=== PATIENT | female | born 1990 | race Hispanic/Latino ===

== ENCOUNTER 2016-10-10 16:36 | Emergency (ER) | payer OTHER ==
[2016-10-10] MEDS ORDERED: diphenhydrAMINE HCl 25 MG CAP ONE (16:48)
--- NOTE | 2016-10-10 17:58 | ERRECORD ---
[facility] EMERGENCY RECORD HPI BEE STING (16:48 [facility]) CHIEF COMPLAINT: Patient presents for evaluation of bee sting. HISTORIAN: History provided by patient, 26F at 28 weeks by dates presents following a bee sting to her left arm. She has had a bad reaction to a bee sting once before, but prior to that she did not have any problems. Denies shortness of breath or throat swelling, is primarily concerned about the pruritis and rash. LOCATION: Symptoms are generalized. TIME COURSE: Sudden onset of symptoms, just prior to arrival. ASSOCIATED WITH: Associated with facial symptoms, Associated with itching, Associated with localized swelling, No associated shortness of breath, No associated throat tightness. RELIEVED BY: Patient's condition relieved by nothing because patient has not tried anything for relief. ROS (16:53 [facility]) CONSTITUTIONAL: Negative constitutional review of systems, Historian denies chills, denies fever. EYES: Negative eye review of systems, Historian denies eye pain, denies vision changes. ENT: Negative ears, nose, throat review of systems, Historian denies rhinorrhea, denies sore throat, denies voice changes. CARDIOVASCULAR: Negative cardiovascular review of systems, Historian denies chest pain, denies palpitations. RESPIRATORY: Negative respiratory review of systems, Historian denies cough, denies shortness of breath. GI: Negative gastrointestinal review of systems, Historian denies abdominal pain, denies constipation, denies diarrhea, denies nausea, denies vomiting. GENITOURINARY FEMALE: Negative genitourinary review of systems, Historian denies dysuria, denies frequency. MUSCULOSKELETAL: Negative musculoskeletal review of systems, Historian denies back pain, denies fall, denies injury. SKIN: Historian reports rash, generalized rash and itchiness. NEUROLOGIC: Negative neurologic review of systems, Historian denies headache, denies mental status changes, denies paralysis, denies paresthesias, denies sensory changes. HEMO/LYMPHATIC: Normal hematologic/lymphatic system review, Historian denies abnormal blood clotting. ALLERGIC/IMMUNOLOGIC: Normal allergy/immunologic system review, Historian denies frequent infections. PAST MEDICAL HISTORY (16:56 WJAN) MEDICAL HISTORY: Flu vaccine up to date, Tetanus immunization up to date, Pneumococcal vaccine not up to date, No past medical history, REVIEWED 10/10/2016. FEMALE SURGICAL HISTORY: UNKNOWN HEART SURGERY CHILD. REVIEWED 12/09/15, Surgical history of cholecystectomy. REVIEWED &a-1R&a+25V*p+0X*g8238C*c202B*c15G*c2P*p-0X&a-25V&a+1R Name: Elisa Hector : 1990 F26 MedRec: [id number] AcctNum: [id number] Prepared: Douglas Oct 10, 2016 18:00 by Interface Page 1 of 4 pMD [facility] EMERGENCY RECORD 10/10/2016. PSYCHIATRIC HISTORY: No previous psychiatric history. REVIEWED 10/10/2016. SOCIAL HISTORY: Patient denies alcohol use, Patient denies drug use, Patient has no smoking history. REVIEWED 10/10/2016. FAMILY HISTORY: Maternal history of diabetes. KNOWN ALLERGIES No Known Drug Allergies CURRENT MEDICATIONS (16:48 WJAN) None VITAL SIGNS VITAL SIGNS: BP: 137/79, Pulse: 96, Resp: 98, Temp: 98 (Oral), Pain: 0, O2 sat: 97 on Room Air, Time: 10/10/2016 16:42. (16:42 WJAN) BP: 129/72, Pulse: 85, Resp: 20, Pain: 0, O2 sat: 97 on Room Air, Time: 10/10/2016 17:41. (17:41 AHOO) Temp: 98.0 (Oral), Time: 10/10/2016 17:47. (17:47 AHOO) PHYSICAL EXAM (16:53 [facility]) CONSTITUTIONAL: Vital signs reviewed, Patient afebrile, Pulse normal, Blood pressure normal, Respiratory rate normal, Patient appears non toxic, Patient appears pain free, Patient alert and oriented to person, place and time. HEAD: Head exam normal, Head exam included findings of head atraumatic, normocephalic. EYES: Eye exam normal, Eye exam included findings of eyelids normal to inspection, Pupils equally round and reactive to light, Extraocular muscles intact, no nystagmus. ENT: ENT exam normal, Ear exam normal, external ear normal, tympanic membranes normal, no bleeding, Pharynx exam normal, Uvula exam normal, Tonsil exam normal, Mouth exam normal, mucous membranes moist, teeth normal. NECK: Neck exam normal, Neck exam included findings of normal range of motion, Trachea midline, no meningeal signs, no cervical adenopathy, no tenderness. RESPIRATORY CHEST: Respiratory and chest exam normal, Respiratory exam included findings of no respiratory distress, Breath sounds clear. CARDIOVASCULAR: Cardiovascular assessment normal, Cardiovascular exam included findings of heart rate regular rate and rhythm, Heart sounds normal. ABDOMEN FEMALE: Abdominal exam included findings of abdomen nontender, Bowel sounds normal, no distension, no mass, no pulsatile masses, no peritoneal signs, no rigidity, no guarding, no rebound, Rovsing's sign absent. BACK: Back exam normal, Back exam included findings of normal inspection, range of motion normal, no tenderness. UPPER EXTREMITY: Upper extremity exam normal, Upper extremity &a-1R&a+25V*p+0X*n1225V*c202B*c15G*c2P*p-0X&a-25V&a+1R Name: Elisa Hector : 1990 F26 MedRec: [id number] AcctNum: [id number] Prepared: Douglas Oct 10, 2016 18:00 by Interface Page 2 of 4 pMD [facility] EMERGENCY RECORD exam included findings of inspection normal, Range of motion normal, Motor strength normal, Sensation intact, Radial pulse normal. LOWER EXTREMITY: Lower extremity exam normal, Lower extremity exam included findings of inspection normal, Range of motion normal, Motor strength normal, Sensation intact, Posterior tibial pulse normal, Pedal pulse normal. NEURO: Neuro exam normal, Neuro exam findings include patient oriented to person, place and time, Speech normal, Gait normal, Cranial nerves intact, no focal motor deficits, no focal sensory deficits. SKIN: Skin exam included findings of skin warm, dry, and normal in color, Rash present, hives, generalized rash. PSYCHIATRIC: Psychiatric exam normal, Normal affect. MEDICATION ADMINISTRATION SUMMARY Drug Name: Benadryl oral, Dose Ordered: 50 mg, Route: Oral, Status: Given, Time: 16:50 10/10/2016, Detailed record available in Medication Service section. DOCTOR NOTES (17:47 [facility]) RE-EVALUATION: Routine re-evaluation, after administration of, benadryl. TEXT: Patient had significant symptomatic improvement after antihistamine dosing. No concern for distress. Based on her history, there is a concern that the next sting will cause an anaphylactic reaction, and I have provided her with an EpiPen and instructed follow up with PMD. S. PATIENT STATUS: Patient has improved since arrival to emergency department. PATIENT PLAN: The patient will be discharged, The patient will follow up with primary care physician. PROBLEM LIST No recorded problems DIAGNOSIS (17:45 [facility]) FINAL: PRIMARY: bee sting. PRESCRIPTION (17:44 [facility]) EpiPen: AUTO-INJECTOR (EA) : 0.3 mg/0.3 mL (1:1,000) : INJECTION : Quantity: 1 Unit: galilea Route: INJECTION Schedule: As Needed Dispense: 1 May substitute. Refills: No Refills . NOTES: No refills. DISPOSITION PATIENT: Disposition Type: Discharge, Disposition: *Discharge Home. (17:45 [facility]) &a-1R&a+25V*p+0X*z1152U*c202B*c15G*c2P*p-0X&a-25V&a+1R Name: Elisa Hector : 1990 MedRec: [id number] AcctNum: [id number] Prepared: SunOct 10, 2016 18:00 by Interface Page 3 of 4 pMD [facility] EMERGENCY RECORD Condition: Good, Patient left the department. (17:55 WOCT) Pickett: [facility]=PAUL Guillaume, January [facility]=MD Karin, Christian NEWMAN=STEPHIE Florian, Nasreen &a-1R&a+25V*p+0X*q2709M*c202B*c15G*c2P*p-0X&a-25V&a+1R Name: Elisa Hector : 1990 F26 MedRec: [id number] AcctNum: [id number] Prepared: SunOct 10, 2016 18:00 by Interface Page 4 of 4 pMD MTDD
--- NOTE | 2016-10-10 18:02 | PICIS ---
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 Rash and hives, 2nd reaction to bee sting. 28 weeks . (SunOct 10, 2016 16:44 WJAN) PATIENT: NAME: Elisa Hector, AGE: 26, GENDER: female, : Sun1990, TIME OF GREET: SunOct 10, 2016 16:37, PREFERRED LANGUAGE: Greenlandic, ETHNICITY: or , ECODE BILLING MAP: [facility], SSN: [id number], Zip Code: [address], KG WEIGHT: 87.54, PHONE: , , , PERSON ID: [id number], PAYMENT: X Medicaid, PCP: MD Groves Kia. (SunOct 10, 2016 16:44 WJAN) COMPLAINT: Allergic Reaction. (SunOct 10, 2016 16:44 WJAN) ADMISSION: URGENCY: 3 Urgent, ADMISSION SOURCE: Home, TRANSPORT: Walk-in, BED: TRIAGE. (SunOct 10, 2016 16:44 WJAN) IMMUNIZATIONS: Flu vaccine up to date, Tetanus immunization up to date, Pneumococcal vaccine not up to date. (16:56 WJAN) SIRS SCORING: Heart Rate 55-109 (0), Temp range 96.8-101.1 (0), respiratory rate 12-24 (0), Mental Status altered: no (0), Infection or Suspected Infection: No. (16:56 WJAN) TRIAGE SCREENING: Patient denies suicidal ideation, Patient denies presence of domestic violence. (16:56 WJAN) LMP: Last menstrual period: 04/09/2016, Estimated conception 04/23/2016, Estimated due date 01/14/2017, Estimated age 26 weeks, 2 days. (16:56 WJAN) PROVIDERS: TRIAGE NURSE: Nasreen Florian RN. (SunOct 10, 2016 16:44 WJAN) VITAL SIGNS: BP 137/79, Pulse 96, Resp 98, Temp 98, (Oral), Pain 0, O2 Sat 97, on Room Air, Time 10/10/2016 16:42. (16:42 WJAN) KNOWN ALLERGIES No Known Drug Allergies CURRENT MEDICATIONS (16:48 WJAN) None VITAL SIGNS VITAL SIGNS: BP: 137/79, Pulse: 96, Resp: 98, Temp: 98 (Oral), Pain: 0, O2 sat: 97 on Room Air, Time: 10/10/2016 16:42. (16:42 WJAN) BP: 129/72, Pulse: 85, Resp: 20, Pain: 0, O2 sat: 97 on Room Air, Time: 10/10/2016 17:41. (17:41 AHOO) Temp: 98.0 (Oral), Time: 10/10/2016 17:47. (17:47 AHOO) NURSING ASSESSMENT: ALLERGIC REACTION (16:45 WJAN) CONSTITUTIONAL: Patient arrives ambulatory, Gait steady, History obtained from patient, Patient appears comfortable, Patient cooperative, Patient alert, Oriented to person, place and time, Skin warm, Skin dry, Skin normal in color, Mucous membranes pink, Mucous membranes moist, Patient is well-groomed, Patient complains of Allergic Reaction, Pt reports being stung by Bee 40 minutes RUG CUTTER, 2nd time to react to bee sting like this with hives, rash, and &a-1R&a+25V*p+0X*f1686K*c202B*c15G*c2P*p-0X&a-25V&a+1R Name: Elisa Hector : 1990 F26 MedRec: [id number] AcctNum: [id number] Prepared: Douglas Oct 10, 2016 18:06 by Interface Page 1 of 6 pMD [facility] EMERGENCY RECORD itching. ALLERGIC REACTION: Allergic reaction to known allergen, bee sting, Past episodes of allergic reactions, to insect, Allergic reaction symptoms include no difficulty breathing, Allergic reaction symptoms include no difficulty swallowing, Allergic reaction symptoms include hives, Allergic reaction symptoms include localized swelling, Allergic reaction symptoms include rash, Allergic reaction symptoms include no swelling to extremities, Allergic reaction symptoms include no swelling to eyes, Allergic reaction symptoms include swelling to face, Allergic reaction symptoms include no swelling to mouth, Pain assessment findings include: Patient denies complaints of pain, Allergic reaction symptoms include no wheezing, Notes: No medications taken RUG CUTTER. RESPIRATORY: Breath sounds clear, Respiratory assessment findings include respiratory effort easy, Respirations regular, Conversing normally, Neck and chest exam findings include trachea midline, Chest expansion equal, Chest movement symmetrical. SKIN: Skin assessment findings include skin warm, Skin dry, Skin normal in color, Inspection findings include rash, red, hives, itchy, Inspection findings include redness, to Face, neck, chest, arms. SAFETY: Side rails up, Cart/Stretcher in lowest position, Call light within reach, Hospital ID band on. NURSING PROCEDURE: DISCHARGE NOTE (17:51 WJAN) DISCHARGE: Patient discharged to home, ambulating without assistance, driving self, unaccompanied, Summary of Care printed/ provided, Patient requested and was provided an electronic copy of Discharge Instructions, Transition record given to patient, Discharge instructions given to patient, Simple or moderate discharge teaching performed, by STEPHIE Downey, Prescriptions given and instructions on side effects given, Medication reconciliation form given, Above person(s) verbalized understanding of discharge instructions and follow-up care, Notes: Patient instructed to follow up with PCP. Patient instructed to follow medication instructions. Patient instructed to follow discharge teaching. BELONGINGS: Belongings remain with patient, Valuables remain with patient. SAFETY: Side rails up, Cart/Stretcher in lowest position, Call light within reach, Hospital ID band on. NURSING PROCEDURE: NURSE NOTES NURSES NOTES: Patient in no apparent distress, Assistance offered to patient, Notes: Pt asked if any breathing issues or throat sensation/tightness, pt denies any breathing difficulty or changes in throat. (16:55 WJAN) Patient in no apparent distress, Notes: Pt resting in bed and able to move herself. Pt denies and breathing issues or changes in throat. Pt reports a decrease in itching and feeling better. (17:20 &a-1R&a+25V*p+0X*b1146K*c202B*c15G*c2P*p-0X&a-25V&a+1R Name: Elisa Hector : 1990 F26 MedRec: [id number] AcctNum: [id number] Prepared: Douglas Oct 10, 2016 18:06 by Interface Page 2 of 6 pMD [facility] EMERGENCY RECORD WJAN) MEDICATION ADMINISTRATION SUMMARY Drug Name: Benadryl oral, Dose Ordered: 50 mg, Route: Oral, Status: Given, Time: 16:50 10/10/2016, Detailed record available in Medication Service section. MEDICATION SERVICE Benadryl oral: Order: Benadryl oral (diphenhydramine HCl) - Dose: 50 mg : Oral Ordered by: Christian Frazier MD Entered by: MD Douglas Narvaez Oct 10, 2016 16:47 , Acknowledged by: Nasreen Florian RN ana Oct 10, 2016 16:48 Documented as given by: Nasreen Florian RN ana Oct 10, 2016 16:50 Patient, Medication, Dose, Route and Time verified prior to administration. Amount given: 50mg, Site: Medication administered P.O., Correct patient, time, route, dose and medication confirmed prior to administration, Patient advised of actions and side-effects prior to administration, Allergies confirmed and medications reviewed prior to administration, Patient in position of comfort, Side rails up, Cart in lowest position. : Follow Up : No signs or symptoms of allergic reaction noted, Decreased symptoms, Decreased rash, Advised not to ambulate without assistance, Patient in position of comfort, Side rails up, Cart in lowest position. (17:20 WFARSHAD) HPI BEE STING (16:48 [facility]) CHIEF COMPLAINT: Patient presents for evaluation of bee sting. HISTORIAN: History provided by patient, 26F at 28 weeks by dates presents following a bee sting to her left arm. She has had a bad reaction to a bee sting once before, but prior to that she did not have any problems. Denies shortness of breath or throat swelling, is primarily concerned about the pruritis and rash. LOCATION: Symptoms are generalized. TIME COURSE: Sudden onset of symptoms, just prior to arrival. ASSOCIATED WITH: Associated with facial symptoms, Associated with itching, Associated with localized swelling, No associated shortness of breath, No associated throat tightness. RELIEVED BY: Patient's condition relieved by nothing because patient has not tried anything for relief. ROS (16:53 [facility]) CONSTITUTIONAL: Negative constitutional review of systems, Historian denies chills, denies fever. EYES: Negative eye review of systems, Historian denies eye pain, denies vision changes. ENT: Negative ears, nose, throat review of systems, Historian &a-1R&a+25V*p+0X*b1942U*c202B*c15G*c2P*p-0X&a-25V&a+1R Name: Elisa Hector : 1990 F26 MedRec: [id number] AcctNum: [id number] Prepared: Douglas Oct 10, 2016 18:06 by Interface Page 3 of 6 pMD [facility] EMERGENCY RECORD denies rhinorrhea, denies sore throat, denies voice changes. CARDIOVASCULAR: Negative cardiovascular review of systems, Historian denies chest pain, denies palpitations. RESPIRATORY: Negative respiratory review of systems, Historian denies cough, denies shortness of breath. GI: Negative gastrointestinal review of systems, Historian denies abdominal pain, denies constipation, denies diarrhea, denies nausea, denies vomiting. GENITOURINARY FEMALE: Negative genitourinary review of systems, Historian denies dysuria, denies frequency. MUSCULOSKELETAL: Negative musculoskeletal review of systems, Historian denies back pain, denies fall, denies injury. SKIN: Historian reports rash, generalized rash and itchiness. NEUROLOGIC: Negative neurologic review of systems, Historian denies headache, denies mental status changes, denies paralysis, denies paresthesias, denies sensory changes. HEMO/LYMPHATIC: Normal hematologic/lymphatic system review, Historian denies abnormal blood clotting. ALLERGIC/IMMUNOLOGIC: Normal allergy/immunologic system review, Historian denies frequent infections. PAST MEDICAL HISTORY (16:56 WJAN) MEDICAL HISTORY: Flu vaccine up to date, Tetanus immunization up to date, Pneumococcal vaccine not up to date, No past medical history, REVIEWED 10/10/2016. FEMALE SURGICAL HISTORY: UNKNOWN HEART SURGERY CHILD. REVIEWED 12/09/15, Surgical history of cholecystectomy. REVIEWED 10/10/2016. PSYCHIATRIC HISTORY: No previous psychiatric history. REVIEWED 10/10/2016. SOCIAL HISTORY: Patient denies alcohol use, Patient denies drug use, Patient has no smoking history. REVIEWED 10/10/2016. FAMILY HISTORY: Maternal history of diabetes. PHYSICAL EXAM (16:53 [facility]) CONSTITUTIONAL: Vital signs reviewed, Patient afebrile, Pulse normal, Blood pressure normal, Respiratory rate normal, Patient appears non toxic, Patient appears pain free, Patient alert and oriented to person, place and time. HEAD: Head exam normal, Head exam included findings of head atraumatic, normocephalic. EYES: Eye exam normal, Eye exam included findings of eyelids normal to inspection, Pupils equally round and reactive to light, Extraocular muscles intact, no nystagmus. ENT: ENT exam normal, Ear exam normal, external ear normal, tympanic membranes normal, no bleeding, Pharynx exam normal, Uvula exam normal, Tonsil exam normal, Mouth exam normal, mucous membranes moist, teeth normal. NECK: Neck exam normal, Neck exam included findings of normal &a-1R&a+25V*p+0X*w3249D*c202B*c15G*c2P*p-0X&a-25V&a+1R Name: Elisa Hector : 1990 F26 MedRec: [id number] AcctNum: [id number] Prepared: SunOct 10, 2016 18:06 by Interface Page 4 of 6 pMD [facility] EMERGENCY RECORD range of motion, Trachea midline, no meningeal signs, no cervical adenopathy, no tenderness. RESPIRATORY CHEST: Respiratory and chest exam normal, Respiratory exam included findings of no respiratory distress, Breath sounds clear. CARDIOVASCULAR: Cardiovascular assessment normal, Cardiovascular exam included findings of heart rate regular rate and rhythm, Heart sounds normal. ABDOMEN FEMALE: Abdominal exam included findings of abdomen nontender, Bowel sounds normal, no distension, no mass, no pulsatile masses, no peritoneal signs, no rigidity, no guarding, no rebound, Rovsing's sign absent. BACK: Back exam normal, Back exam included findings of normal inspection, range of motion normal, no tenderness. UPPER EXTREMITY: Upper extremity exam normal, Upper extremity exam included findings of inspection normal, Range of motion normal, Motor strength normal, Sensation intact, Radial pulse normal. LOWER EXTREMITY: Lower extremity exam normal, Lower extremity exam included findings of inspection normal, Range of motion normal, Motor strength normal, Sensation intact, Posterior tibial pulse normal, Pedal pulse normal. NEURO: Neuro exam normal, Neuro exam findings include patient oriented to person, place and time, Speech normal, Gait normal, Cranial nerves intact, no focal motor deficits, no focal sensory deficits. SKIN: Skin exam included findings of skin warm, dry, and normal in color, Rash present, hives, generalized rash. PSYCHIATRIC: Psychiatric exam normal, Normal affect. EVENTS TRANSFER: Triage to Emergency Triage. (SunOct 10, 2016 16:44 WJAN) Emergency Triage to Emergency Room -02. (16:51 WJAN) Removed from Emergency Emergency Room -02. (17:55 WJAN) DOCTOR NOTES (17:47 [facility] RE-EVALUATION: Routine re-evaluation, after administration of, benadryl. TEXT: Patient had significant symptomatic improvement after antihistamine dosing. No concern for distress. Based on her history, there is a concern that the next sting will cause an anaphylactic reaction, and I have provided her with an EpiPen and instructed follow up with PMD. S. PATIENT STATUS: Patient has improved since arrival to emergency department. PATIENT PLAN: The patient will be discharged, The patient will follow up with primary care physician. PROBLEM LIST &a-1R&a+25V*p+0X*n3120C*c202B*c15G*c2P*p-0X&a-25V&a+1R Name: Elisa Hector : 1990 F26 MedRec: [id number] AcctNum: [id number] Prepared: Douglas Oct 10, 2016 18:06 by Interface Page 5 of 6 pMD [facility] EMERGENCY RECORD No recorded problems DIAGNOSIS (17:45 [facility]) FINAL: PRIMARY: bee sting. DISPOSITION PATIENT: Disposition Type: Discharge, Disposition: *Discharge Home. (17:45 JJA) Condition: Good, Patient left the department. (17:55 WJAN) INSTRUCTION (17:46 [facility]) DISCHARGE: BEE STING GENERAL ALLERGIC REACTION. FOLLOWUP: MD Germain, [place], [facility], [address] includes the [facility] [id number], [phone]. SPECIAL: Follow up with your primary doctor and OBGYN. Benadryl or Claritin for itching. If you get stung again and the reaction is getting worse, use the EpiPen and then come back to the ED. PRESCRIPTION (17:44 [facility]) EpiPen: AUTO-INJECTOR (EA) : 0.3 mg/0.3 mL (1:1,000) : INJECTION : Quantity: 1 Unit: galilea Route: INJECTION Schedule: As Needed Dispense: 1 May substitute. Refills: No Refills . NOTES: No refills. IMAGING *SUPPLY CHARGE SHEET: Image captured from scanner. (17:55 WOCT) *DISCHARGE INSTRUCTIONS RECEIPT: Image captured from scanner. (17:56 WOCT) ADMIN (17:48 [facility]) DIGITAL SIGNATURE: MD Frazier Jason. Pickett: AHOO=PAUL Guillaume, January JLANDRY=MD Frazier Jason WOCT=STEPHIE Florian, Nasreen &a-1R&a+25V*p+0X*x6894N*c202B*c15G*c2P*p-0X&a-25V&a+1R Name: Elisa Hector : 1990 F26 MedRec: [id number] AcctNum: [id number] Prepared: Douglas Oct 10, 2016 18:06 by Interface Page 6 of 6 pMD MTDD
== END 2016-10-10 17:51 | disposition home or self-care (01) ==
LOC: BURERS 16:36
DX: T63.441A Toxic effect of venom of bees, accidental (unintentional), initial encounter (principal); Z90.49 Acquired absence of other specified parts of digestive tract
CPT/HCPCS: 99282

== ENCOUNTER 2019-08-18 11:02 | Outpatient (CLI) | payer OTHER ==
--- NOTE | 2019-08-18 11:52 | RAD ---
RADIOGRAPH LUMBAR SPINE 3 VIEWS: DATE: 08/18/2019 HISTORY: 29-year-old female with ICD-10: "M 54.42 left-sided lumbago with sciatica" Chronic low back pain. FINDINGS: There are 5 lumbar-type vertebrae. Vertebral body heights are maintained. No scoliosis. L5 pars inter articularis defects. Mild grade 1 anterolisthesis of L5 on S1. Mild to moderate disc space narrowing at L5-S1. The rest of the disc spaces are maintained. IMPRESSION: 1.) L5 spondylolysis causing mild grade 1 spondylolisthesis at L5-S1. 2) mild to moderate degenerative disc changes at L5-S1.
== END 2019-08-18 11:03 | disposition home or self-care (01) ==
LOC: BURRAD 11:02
PROVIDERS: ATTEND Physician Assistant
DX: M54.42 Lumbago with sciatica, left side (principal); M51.36 Other intervertebral disc degeneration, lumbar region; M43.06 Spondylolysis, lumbar region
CPT/HCPCS: 72100

== ENCOUNTER 2023-05-27 14:33 | Emergency (ER) | payer OTHER | END 2023-05-27 14:56 | disposition home or self-care (01) | LOC: BURERS 14:33 | DX: O98.511 Other viral diseases complicating pregnancy, first trimester (principal); B34.9 Viral infection, unspecified; Z3A.01 Less than 8 weeks gestation of pregnancy | CPT/HCPCS: 99283 ==

== ENCOUNTER 2023-09-07 03:35 | Emergency (ER) | payer OTHER | END 2023-09-07 04:18 | disposition home or self-care (01) | LOC: BURERS 03:35 | DX: O26.893 Other specified pregnancy related conditions, third trimester (principal); Z3A.33 33 weeks gestation of pregnancy | CPT/HCPCS: 99282 ==